=== PATIENT | female | born 1975 ===

== ENCOUNTER 2018-07-13 19:50 | Emergency (ER) | payer OTHER ==
[~2018-07-13] VITALS: Ht 157.5 cm; Wt 94.3 kg
[~2018-07-13 19:50] MED LIST: AMOX1TAB12 PO; HYDROCHLOROTHIA25 MG PO; KETO10TA2 PO; ORASEP SPRAY30 ML MM; [UNRECOGNIZED DRUG - OTHER] OT
== END 2018-07-13 20:49 | disposition home or self-care (01) ==
LOC: ER 19:50
DX: K61.0 Anal abscess (principal)